=== PATIENT | male | born 1935 | race Caucasian/White ===

== ENCOUNTER 2022-12-02 19:27 | Emergency (ER) | payer MEDICARE, OTHER ==
--- NOTE | 2022-12-02 19:30 | ERPHSYRPT ---
- History of Present Illness Time Seen by Provider: 12/02/22 19:30 Source: patient, EMS Exam Limitations: no limitations Physician History: This is an 87-year-old white male patient who was lifting his at home and he had a sudden pain in his lower spine. He did not fall or suffer any traumatic injury from falling but presents via ambulance because of the pain he is experiencing. Patient denies chest pain. Patient denies shortness of breath. He did not hit his head he has no pain anywhere else. Patient has a remote history of a fracture on T11. Patient has no loss of bowel or bladder control. He has no numbness or pain being in his feet. He denies constipation. Timing/Duration: today Method of Injury: lifting Quality: radiating, stabbing Associated Symptoms: denies symptoms Previous symptoms: no prior history Allergies/Adverse Reactions: Penicillins Allergy (Verified 12/02/22 19:51) Home Medications: Amino Acids/Mv,Fe,Other Min [Ocuvite Extra Tablet] 6 mg HS 11/22/15 [History] Aspirin 81 mg DAILY 11/22/15 [History] Atorvastatin Calcium 40 mg PO HS 11/22/15 [History] Calcium Carb/Vitamin D3/Vit K1 [Calcium + D Soft Chewable Tab] 600 mg DAILY 11/22/15 [History] Famotidine 20 mg 11/22/15 [History] Metoprolol Tartrate 50 mg [Lopressor 50 MG] 25 mg BID 11/22/15 [History] Olmesartan Medoxomil 20 mg [Benicar 20 MG] 20 mg DAILY 11/22/15 [History] [place]-3 Fatty Acids/Fish Oil [Fish Oil 1,000 mg Capsule] 1,000 mg BID PRN 11/22/15 [History] Spironolactone 25 mg DAILY 11/22/15 [History] Tamsulosin HCl 0.4 mg DAILY 11/22/15 [History] Warfarin Sodium 0 mg DAILY 11/22/15 [History] Travel Risk - International Travel Have you traveled outside of the country in past 3 weeks: No - Coronavirus Screening Are you exhibiting any of the following symptoms?: No Close contact with a COVID-19 positive Pt in past 14-21 Days: No - Review of Systems Constitutional: No Symptoms Eyes: No Symptoms Ears, Nose, & Throat: No Symptoms Respiratory: No Symptoms Cardiac: No Symptoms Abdominal/Gastrointestinal: No Symptoms Genitourinary Symptoms: No Symptoms Musculoskeletal: Back Pain Skin: No Symptoms Neurological: No Symptoms Psychological: No Symptoms Endocrine: No Symptoms Hematologic/Lymphatic: No Symptoms Immunological/Allergic: No Symptoms All Other Systems: Reviewed and Negative - Past Medical History Pertinent Past Medical History: Yes Neurological History: No Pertinent History ENT History: No Pertinent History Cardiac History: Hypertension, Myocardial Infarction ([place]) Respiratory History: No Pertinent History Endocrine Medical History: No Pertinent History GI Medical History: No Pertinent History Other Medical History: BLIND IN RIGHT EYE - Past Surgical History Past Surgical History: Yes Cardiac: CABG, Pacemaker - Social History Smoking Status: Never smoker Exposure to second hand smoke: No Drug Use: none Patient Lives Alone: No - Nursing Vital Signs Nursing Vital Signs: Initial Vital Signs Temperature 97.0 F 12/02/22 19:29 Pulse Rate 69 12/02/22 19:29 Respiratory Rate 18 12/02/22 19:29 Blood Pressure 163/75 12/02/22 19:29 O2 Sat by Pulse Oximetry 99 12/02/22 19:29 Pain Scale Pain Intensity 2 - Physical Exam General Appearance: no apparent distress, alert, anxiety Eye Exam: PERRL/EOMI, eyes nml inspection Ears, Nose, Throat Exam: normal ENT inspection, moist mucous membranes Neck Exam: normal inspection, non-tender, supple, full range of motion Respiratory Exam: normal breath sounds, lungs clear, airway intact, No chest tenderness, No respiratory distress Cardiovascular Exam: regular rate/rhythm, normal heart sounds, normal peripheral pulses Gastrointestinal Exam: soft, normal bowel sounds, No tenderness Rectal Exam: not done Back Exam: vertebral tenderness (Lumbar level), decreased range of motion, muscle spasm Extremity Exam: normal inspection, normal range of motion, pelvis stable Neurologic Exam: alert, oriented x 3, cooperative, edge setter II-XII nml as tested, normal mood/affect, sensation nml Skin Exam: normal color, warm, dry Lymphatic Exam: No adenopathy SpO2 Interpretation: normal O2 Delivery: Room Air - Course Nursing assessment & vital signs reviewed: Yes Ordered Tests: Active Orders 24 hr Category Date Time Status IV Insertion STAT Care 12/02/22 19:33 Active ABDOMEN AND PELVIS W/0 CONTRAS [CT] Stat Exams 12/02/22 19:32 Completed RECONSTRUCTION [CT] Stat Exams 12/02/22 19:36 Taken CBC W DIFF Stat Lab 12/02/22 19:58 Completed CMP Stat Lab 12/02/22 19:58 Completed UA W/RFX UR CULTURE Stat Lab 12/02/22 19:31 Ordered Medication Summary Discontinued Medications Generic Name Dose Route Start Last Admin Trade Name Carmen PRN Reason Stop Dose Admin Hydromorphone HCl 0.5 mg 12/02/22 19:47 12/02/22 19:51 Hydromorphone 1 Mg/1ml Inj IV 12/02/22 19:48 0.5 mg STAT ONE Administration Hydromorphone HCl Confirm 12/02/22 19:49 Hydromorphone 1 Mg/1ml Inj Administered 12/02/22 19:50 Dose 1 mg .ROUTE .STK-MED ONE Morphine Sulfate 2 mg 12/02/22 21:29 12/02/22 21:34 Morphine Sulfate 2 Mg/Ml Inj IV 12/02/22 21:30 2 mg STAT ONE Administration Morphine Sulfate Confirm 12/02/22 21:32 Morphine Sulfate 2 Mg/Ml Inj Administered 12/02/22 21:33 Dose 2 mg .ROUTE .STK-MED ONE Ondansetron HCl 4 mg 12/02/22 19:47 12/02/22 19:51 Ondansetron Hcl 4 Mg/2 Ml Vial IV 12/02/22 19:48 4 mg STAT ONE Administration Ondansetron HCl Confirm 12/02/22 19:49 Ondansetron Hcl 4 Mg/2 Ml Vial Administered 12/02/22 19:50 Dose 4 mg .ROUTE .STK-MED ONE Orphenadrine Citrate 60 mg 12/02/22 21:29 12/02/22 21:34 Orphenadrine Citrate 60 Mg/2 Ml Vial IV 12/02/22 21:30 60 mg STAT ONE Administration Orphenadrine Citrate Confirm 12/02/22 21:32 Orphenadrine Citrate 60 Mg/2 Ml Vial Administered 12/02/22 21:33 Dose 60 mg .ROUTE .STK-MED ONE Lab/Rad Data: Laboratory Result Diagrams 12/02/22 19:58 12/02/22 19:58 Laboratory Results 12/02/22 12/02/22 Range/Units 19:58 19:58 WBC 10.6 H (4.0-10.5) x10^3/uL RBC 4.68 (4.1-5.6) x10^6/uL Hgb 14.8 (12.5-18.0) g/dL Hct 44.1 (42-50) % MCV 94.2 (78-100) fL MCH 31.6 (26-32) pg MCHC 33.6 (32-36) g/dL RDW 13.2 (11.5-14.0) % Plt Count 139 L (150-450) x10^3/uL MPV 9.1 (7.5-11.0) fL Gran % 81.0 H (36.0-66.0) % Immature Gran % (Auto) 0.8 H (0.00-0.4) % Nucleat RBC Rel Count 0.0 (0.00-0.1) % Eos # (Auto) 0.14 (0-0.5) x10^3/uL Immature Gran # (Auto) 0.08 H (0.00-0.03) x10^3u/L Absolute Lymphs (auto) 1.17 (1.0-4.6) x10^3/uL Absolute Monos (auto) 0.59 (0.0-1.3) x10^3/uL Absolute Nucleated RBC 0.00 (0.00-0.01) x10^3u/L Lymphocytes % 11.0 L (24.0-44.0) % Monocytes % 5.6 (0.0-12.0) % Eosinophils % 1.3 (0.00-5.0) % Basophils % 0.3 (0.0-0.4) % Absolute Granulocytes 8.58 H (1.4-6.9) x10^3/uL Basophils # 0.03 (0-0.4) x10^3/uL Sodium 137 (137-145) mmol/L Potassium 4.3 (3.5-5.1) mmol/L Chloride 100 (98-107) mmol/L Carbon Dioxide 26 (22-30) mmol/L Anion Gap 14.4 (5-15) MEQ/L BUN 30 H (9-20) mg/dL Creatinine 1.59 H (0.66-1.25) mg/dL Estimated GFR 44.2 ML/MIN Glucose 125 H (74-106) mg/dL Calcium 9.7 (8.4-10.2) mg/dL Total Bilirubin 0.90 (0.2-1.3) mg/dL AST 34 (17-59) U/L ALT 33 (0-50) U/L Alkaline Phosphatase 135 H (38-126) U/L Serum Total Protein 7.4 (6.3-8.2) g/dL Albumin 4.1 (3.5-5.0) g/dL - Progress Progress: improved, pain not gone completely, re-examined Progress Note: 12/02/22 22:42 Patient reexamined. Patient states the pain is now tolerable in his back. CT scan of the abdomen pelvis with reconstruction with the lumbar spine shows a remote T11 fracture which has not changed since the comparison film of 08/2021. Patient has no abdominal aortic aneurysm. There is atherosclerotic disease of the aorta but no dissection present. This patient's medical issue is 1 of moderate complexity. This is based on the review of the patient's extensive past medical history, review of his medication list, review of the drug allergy list, history of present illness and the physical findings on examination. Work-up performed included placement of intravenous line, CBC, CMP and urinalysis. A CT scan of the abdomen and pelvis without contrast and with reconstruction of the lumbar spine was performed. I reviewed the results of the work-up. The patient was also given 0.5 mg of Dilaudid intravenously as well as 4 mg intravenous Zofran. We then provided the patient with 2 mg of intravenous morphine and 60 mg of intravenous orp henadrine. Patient's back pain has significantly improved. Counseled pt/family regarding: lab results, diagnosis, need for follow-up, rad results Medical Desision Making - Independent Historian Additional History obtained from: Child - Diagnostic Testing Diagnostic test were ordered, analyzed, and reviewed by me: Yes Radiological Interpretation: Reviewed by me, Teleradiologist Report - Risk of complications The pt has a mod risk of morbidity or mortality based on: Need for prescription drug management - Departure Departure Disposition: Home Clinical Impression: Back pain due to injury Condition: Stable Critical Care Time: No Referrals: GABI PETER MD [Primary Care Provider] - Follow up/PCP as directed Additional Instructions: Take the medication as prescribed. Call your primary care provider tomorrow to make arrangements for moving up your follow-up appointment that you have scheduled on 11 December. Prescriptions: Oxycodone HCl/Acetaminophen [Percocet 5-325 mg Tablet] 1 each PO Q8H PRN PRN #6 tablet MDD 3 PRN Reason: Moderate To Severe Pain Orphenadrine Citrate 100 mg [Norflex 100 MG Tablet] 100 mg PO BID #10 tab
[2022-12-02] MEDS ORDERED: Hydromorphone 1 mg/ml Injection IV ONE (19:47)
[2022-12-02] MEDS ORDERED: Zofran 4 MG/2 ML VIAL IV ONE (19:47)
[2022-12-02] MEDS ORDERED: Hydromorphone 1 mg/ml Injection ONE (19:49)
[2022-12-02] MEDS ORDERED: Zofran 4 MG/2 ML VIAL ONE (19:49)
[2022-12-02 20:00] LABS: Absolute Neutrophil Ct (ANC) 8.58 x10^3/uL (1.4-6.9); BASOPHIL % 0.3 % (0.0-0.4); Basophil (Absolute #) 0.03 x10^3/uL (0-0.4); Eosinophil % 1.3 % (0.00-5.0); Eosinophil (Absolute #) 0.14 x10^3/uL (0-0.5); Hematocrit 44.1 % (42-50); Hemoglobin 14.8 g/dL (12.5-18.0); IMMATURE GRAN # 0.08 x10^3u/L (0.00-0.03); IMMATURE GRAN % 0.8 % (0.00-0.4); Lymphocyte (Absolute #) 1.17 x10^3/uL (1.0-4.6); Mean Cell Volume 94.2 fL (78-100); Mean Corpuscular Hemoglobin 31.6 pg (26-32); Mean Corpuscular Hgb Concent. 33.6 g/dL (32-36); Mean Platelet Volume 9.1 fL (7.5-11.0); Monocyte (Absolute #) 0.59 x10^3/uL (0.0-1.3); Monocytes % 5.6 % (0.0-12.0); Platelet Count 139 x10^3/uL (150-450); Red Blood Count 4.68 x10^6/uL (4.1-5.6); Red Cell Distribution Width 13.2 % (11.5-14.0); White Blood Count 10.6 x10^3/uL (4.0-10.5)
[2022-12-02 20:13] LABS: ALBUMIN 4.1 g/dL (3.5-5.0); ANION GAP 14.4 MEQ/L (5-15); BILIRUBIN,TOTAL 0.9 mg/dL (0.2-1.3); Calcium 9.7 mg/dL (8.4-10.2); Creatinine 1 1.59 mg/dL (0.66-1.25); EST GLOMERULAR FILTRATION RATE 44.2 ML/MIN; Potassium 4.3 mmol/L (3.5-5.1); Total Protein 7.4 g/dL (6.3-8.2)
[2022-12-02] MEDS ORDERED: Norflex 60 MG/2 ML IV ONE (21:29)
[2022-12-02] MEDS ORDERED: MORPHINE SULFATE 2 MG INJ IV ONE (21:29)
[2022-12-02] MEDS ORDERED: MORPHINE SULFATE 2 MG INJ ONE (21:32)
[2022-12-02] MEDS ORDERED: Norflex 60 MG/2 ML ONE (21:32)
--- NOTE | 2022-12-02 22:25 | XRAY ---
CLINICAL HISTORY:Back pain following a lifting injury. rule out aneurysm or spine injury. COMPARISON:08/25/2021. TECHNIQUES:CT of the abdomen and pelvis was performed with axial images as well as sagittal and coronal reconstruction images without intravenous contrast. DLP: 413.42 mGy*cm. CTDI: 8.15 mGy. FINDINGS: The liver is normal in size, and morphology and appears unremarkable with no intrahepatic or extrahepatic bile duct dilation. A small radio-dense calculus is noted in the neck of the gall bladder. No wall thickening or pericholecystic inflammatory changes or fluid. Unremarkable appearing pancreas. No pancreatic mass or ductal dilatation is seen. Unremarkable appearing spleen. The adrenal glands are normal. The kidneys appear smaller in size with mild cortical thinning. No cysts, calculi, masses, or hydronephrosis. Bilateral perinephric fat stranding is noted. The ureters are normal with no stones. Stable moderate atherosclerotic changes in the abdominal aorta without specific evidence of aneurysm or dissection. IVC is normal. Small hiatal hernia is seen. Small Bowel and colon are non-distended with no abnormality. No free air and no ascites. No free intraperitoneal air is seen. The bladder is unremarkable with no stones. The prostate is not enlarged. A stable small calcific density measuring 2.6 mm is noted in the region of the prostatic urethra, this is likely more suggestive of parenchymal calcifications than a small calculus. Stable bilateral fat-containing inguinal hernias are seen. Visualized bones show osteopenia and stable compression fracture of the T11 vertebral body. IMPRESSION: Small-sized kidney with mild cortical thinning(mildly worsening since the previous study), concerning for renal parenchymal disease. Further correlation with RFTs is advised. Uncomplicated cholelithiasis. Stable moderate atherosclerotic changes in the abdominal aorta without specific evidence of aneurysm or dissection. Stable hiatal hernia and bilateral fat-containing inguinal hernias. Electronically Signed by: James Dunn MD. ( 12/02/2022 21:18:19 [employer] INFORMATION CLERK)
[2022-12-02] MEDS ORDERED: PERCOCET TABLET 5/325MG PO STA (22:48)
--- NOTE | 2022-12-02 22:50 | XRAY ---
CLINICAL HISTORY:Back pain following a lifting injury. COMPARISON:08/25/2018. TECHNIQUES:CT scan of lumbar spine done. Axial images were obtained with reformatted coronal and sagittal images and submitted for interpretation. FINDINGS: Reduced background bone density. Stable grade I compression fracture of T11 vertebral body with mild retropulsion of the superior fragment. Preserved physiological lumbar lordosis. Normal vertebral bodies height and alignment. Mild anterolisthesis of L4 over L5. 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 No acute fractures could be detected. No retro paraspinal soft tissue masses. No developmental canal stenosis. IMPRESSION: Reduced background bone density. Stable grade I compression fracture of T11 vertebral body with mild retropulsion of the superior fragment. Stable mild anterolisthesis of L4 over L5. 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 No acute fracture. Electronically Signed by: James Dunn MD. 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
[2022-12-02] MEDS ORDERED: PERCOCET TABLET 5/325MG ONE (23:00)
[2022-12-02 23:02] VITALS: BP 137/82; PULSE 60; O2SAT 95
== END 2022-12-02 23:08 | disposition home or self-care (01) ==
LOC: ED 19:27
DX: M54.50 Low back pain, unspecified (principal); X50.0XXA Overexertion from strenuous movement or load, initial encounter; Y93.F2 Activity, caregiving, lifting; I10 Essential (primary) hypertension; Z79.01 Long term (current) use of anticoagulants; Z79.891 Long term (current) use of opiate analgesic; Z79.899 Other long term (current) drug therapy
CPT/HCPCS: 36000; 36415; 74176; 76376; 80053; 85025; 96374; 96375; 99284; J1170; J2270; J2360; J2405; A9270-GY